=== PATIENT | male | born 1960 | race Caucasian/White ===

== ENCOUNTER 2019-06-06 12:35 | Emergency (ER) | payer OTHER, SELFPAY ==
[2019-06-06 12:37] VITALS: BP 159/72; PULSE 95; TEMP 36.4; O2SAT 96
--- NOTE | 2019-06-06 12:39 | ED.GENADUL_ITS ---
Discharge Plan Disposition Patient Disposition: HOME Condition: Improving Discharge Details Chief Complaint: Laceration Clinical Impression: Laceration of knee, left Primary Care Provider: [facility] Provider: Salazar Huang Home Meds and New Rx's Prescriptions: New cephalexin 500 mg capsule 500 mg PO TID 5 Days Qty: 15 RF: 0 Discharge Instructions Instructions: Laceration (ED) Additional Instructions: Please wear brace when awake and out of bed for 3 to 5 days time to protect the wound. Take antibiotics as prescribed. Apply ice to reduce pain and swelling. You may use Tylenol and/or ibuprofen as needed for pain. Return to develop a fever, discharge from the wound, or any other concerns. Leave current dressing in place for 72 hours, then may remove, gently cleanse with soap and water, pat dry and replace dressing. Sutures should stay in 12 to 14 days time. Return or see regular doctor for suture removal. Medical Decision Making 58-year-old male [place] the [place] and fell striking his patella on the ground with subsequent laceration. He applied pressure at the scene and presented urgently to the emergency department. He states that his tetanus status is up-to-date. Patient was referred for x-ray, liberally irrigated, anesthetized, examined in a bloodless field without evidence of foreign body. X-ray with no evidence of bony alignment. Wound subsequently repaired in multilayer closure with 2 deep muscle layer closure placed with 3-0 Vicryl, 3-0 Prolene horizontal mattress sutures were placed in the skin layer alternating with interrupted sutures with 4-0 nylon. I dressed the wound, I will have the patient wear a straight leg brace to immobilize the wound for 3 to 4 days time. Understands homecare, timing for suture removal. I would consider the patient's wound inherently contaminated and will place him on a course of Keflex. He understands return precautions. HPI General Mode of arrival: wheelchair . Date/Time Provider Initiated Documentation: 06/06/19 12:35 . Limitations to Documentation: no limitations . Information obtained by: patient . History of Present Illness 58 year old M presents to the emergency department with the chief complaint of Left knee laceration after fall, described as moderate, Quality is described as dull and constant, and is localized to the left and lower extremity. Patient reports no radiation. Patient started experiencing this minute(s) and it has been constant. No relieving factors improve symptom(s), No exacerbating factors reported . Patient notes no other symptoms. and other (States tetanus is up to date). Patient did receive the following treatments prior to arrival, none Related Data Home Medications Medication Instructions Recorded Confirmed cephalexin 500 mg PO TID 5 Days #15 cap 06/06/19 Previous Rx's Medication Instructions Recorded cephalexin 500 mg PO TID 5 Days #15 cap 06/06/19 Allergies Allergy/AdvReac Type Severity Reaction Status Date / Time No Known Allergies Allergy Unverified 06/06/19 12:42 Review of Systems Narrative: No other injury, 4 systems reviewed and negative Exam Narrative Exam Narrative: GEN: awake, alert, oriented 3. Pleasant, well groomed, interactive. HEAD: Normocephalic, atraumatic ENT: Mucous membranes moist, oropharynx unremarkable, External ear exam unremarkable EYES: PERRL, EOMI NECK: Full ROM, no JERALD, no menigismus Chest and back nontender EXT: Full ROM, the left knee has a large oblique to vertically oriented laceration across the patella. Patient has full range of motion, normal exte nsion extension with motor strength 5 out of 5. Distal capillary refill less than 2 seconds. Sensation intact throughout. Neuro: Grossly normal neurologic exam, conversant, interactive. Psych: Speech fluent, thoughts congruent, affect normal Procedures Laceration Laceration 1: Site: lower extremity Side (If applicable): left Size (cm): 10 Description: irregular and contaminated Depth: involves muscle layer Local Anesthetic: Lidocaine 1% Amount of anesthesia used (mL): 10 Pre-repair: wound explored and irrigated extensively Skin layer closed with: nylon Size (cm): 3-0 Technique: horizontal mattress Muscle layer closed with: vicryl Size: 4-0 Number of sutures: 2 Technique: simple, interrupted
--- NOTE | 2019-06-06 12:45 | DI.RAD_ITS ---
EXAM: XR KNEE LT 3V AP,LAT,CONG CLINICAL HISTORY: fall, laceration, pain. TECHNIQUE: 2D digital imaging was performed. COMPARISON: No exams were available for comparison FINDINGS: BONES: No acute fracture is present. No bony destructive lesion is seen. There is an enthesophyte at the superior patella. JOINTS: The knee is normally aligned. No joint effusion is seen. SOFT TISSUE: Normal. IMPRESSION: No acute abnormality. DATA REPOSITORY: RADIATION DOSE DELIVERED:
--- NOTE | 2019-06-06 13:08 | DI.VRAD_ITS ---
PROCEDURE INFORMATION: Exam: XR Left Knee Exam date and time: 06/06/2019 1:01 PM Age: 58 years old Clinical indication: Injury or trauma; Fall; Initial encounter; Laceration; Patella or knee; Left; Foreign body involvement not specified TECHNIQUE: Imaging protocol: XR Left knee. Views: 3 views. COMPARISON: No relevant prior studies available. FINDINGS: The bony structures are in anatomic alignment. No fracture is present. No radiopaque foreign body is identified. The joint spaces are well maintained. IMPRESSION: No evidence of acute bony abnormality. Dictated and Authenticated by: Cosme Marquez MD. Ordering:RADHA Lincoln MD
[2019-06-06] MEDS: Cephalexin 500 MG CAP PO (13:34)
== END 2019-06-06 14:25 | disposition home or self-care (01) ==
LOC: ER 14:11
PROVIDERS: Emergency Provider Emergency Medicine
DX: S81.012A Laceration without foreign body, left knee, initial encounter (principal); W01.10XA Fall on same level from slipping, tripping and stumbling with subsequent striking against unspecified object, initial encounter
CPT/HCPCS: 12034; 29505; 73562; L1830